=== PATIENT | male | born 1965 | race Caucasian/White ===

== ENCOUNTER 2019-02-07 10:06 | Day surgery (SDC) | payer OTHER ==
[2019-02-07] MEDS ORDERED: Depo-Medrol 40 MG/ML IM ONE (10:07)
[2019-02-07] MEDS ORDERED: Xylocaine 1% Vial 30 ML PF IJ ONE (10:07)
[2019-02-07] MEDS ORDERED: Zofran 4 MG/2 ML VIAL IV ONE (10:07)
[2019-02-07] MEDS ORDERED: Sodium Chloride 0.9(Preservative Free) 10 ML IJ ONE (10:07)
[2019-02-07] MEDS ORDERED: DIPRIVAN 200 MG/20 ML IV ONE (10:07)
--- NOTE | 2019-02-07 13:40 | XRAY ---
18 seconds of fluoroscopy was used in surgery for a L5-S1 AMADOR.
--- NOTE | 2019-02-07 13:40 | XRAY ---
Indication: L5-S1 AMADOR. Intraoperative fluoroscopy was provided for 18 seconds. Single lateral digital spot image submitted for interpretation demonstrates posterior needle tip projecting just posterior to the lumbosacral junction. Correlate with intraoperative findings/report.
[2019-02-07] MEDS ORDERED: Lactated Ringers 1,000 ML IV ONE (14:54)
[2019-02-07] MEDS ORDERED: Ketamine HCl 50 MG/ML IJ ONE (14:57)
== END 2019-02-07 12:12 | disposition home or self-care (01) ==
LOC: SDC-PAIN 10:06
PROVIDERS: ATTEND Psychiatry & Neurology Pain Medicine
DX: M54.16 Radiculopathy, lumbar region (principal); I10 Essential (primary) hypertension; M47.9 Spondylosis, unspecified; Z79.899 Other long term (current) drug therapy
CPT/HCPCS: 62323; 72100; 77003; J1030; J2001; J2405; J2704; Q9966

== ENCOUNTER 2019-02-28 12:43 | Day surgery (SDC) | payer OTHER ==
[2019-02-28] MEDS ORDERED: Depo-Medrol 40 MG/ML IM ONE (12:44)
[2019-02-28] MEDS ORDERED: Xylocaine-Mpf 2% 5 Ml Vial IJ ONE (12:44)
[2019-02-28] MEDS ORDERED: Ketamine HCl 50 MG/ML IV ONE (12:44)
[2019-02-28] MEDS ORDERED: DIPRIVAN 200 MG/20 ML IV ONE (12:44)
[2019-02-28] MEDS ORDERED: Lactated Ringers 1,000 ML IV ONE (14:24)
--- NOTE | 2019-02-28 16:27 | XRAY ---
12 seconds of fluoroscopy was used in surgery for bilateral L4-L5 and L5-S1 MBB.
--- NOTE | 2019-03-01 05:16 | XRAY ---
Indication: Bilateral L4-L5 and L5-S1 MBB. Intraoperative fluoroscopy was provided for 12 seconds. A single digital spot image submitted for interpretation demonstrates posterior spinal needle tips injected over the expected course of the right and left L4, L5, and S1 nerve roots. A small amount of contrast has been injected for needle tip placement. Correlate with intraoperative findings/.
== END 2019-02-28 14:15 | disposition home or self-care (01) ==
LOC: SDC-PAIN 12:43
PROVIDERS: ATTEND Psychiatry & Neurology Pain Medicine
DX: M47.816 Spondylosis without myelopathy or radiculopathy, lumbar region (principal); I10 Essential (primary) hypertension
CPT/HCPCS: 64493; 64494; 72020; 77002; J1030; J2704

== ENCOUNTER 2019-03-28 09:52 | Day surgery (SDC) | payer OTHER ==
[2019-03-28] MEDS ORDERED: Depo-Medrol 40 MG/ML IM ONE (09:53)
[2019-03-28] MEDS ORDERED: Sodium Chloride 0.9(Preservative Free) 10 ML IJ ONE (09:53)
[2019-03-28] MEDS ORDERED: DIPRIVAN 200 MG/20 ML IV ONE (11:19)
[2019-03-28] MEDS ORDERED: Ketamine HCl 50 MG/ML ONE (11:19)
--- NOTE | 2019-03-28 12:10 | XRAY ---
Indication: Left L4-L5 and L5-S1 transforaminal AMADOR. Intraoperative fluoroscopy was provided for 16 seconds. 2 digital spot images submitted for interpretation demonstrates posterior needle tips projecting over the expected course of the left L4 and L5 nerve roots. Small amount of contrast injected for needle tip placement. Correlate with intraoperative findings/report.
--- NOTE | 2019-03-28 12:20 | XRAY ---
16 seconds of fluoroscopy was used in surgery for a left L4-L5 and L5-S1 transforaminal AMADOR.
[2019-03-28] MEDS ORDERED: Lactated Ringers 1,000 ML IV ONE (13:34)
== END 2019-03-28 11:54 | disposition home or self-care (01) ==
LOC: SDC-PAIN 09:52
PROVIDERS: ATTEND Psychiatry & Neurology Pain Medicine
DX: M54.16 Radiculopathy, lumbar region (principal); I10 Essential (primary) hypertension
CPT/HCPCS: 64483; 64484; 72020; 77003; J1030; J2704; Q9966

== ENCOUNTER 2019-05-30 09:33 | Day surgery (SDC) | payer OTHER ==
[2019-05-30] MEDS ORDERED: Depo-Medrol 40 MG/ML IM ONE (09:34)
[2019-05-30] MEDS ORDERED: Sodium Chloride 0.9(Preservative Free) 10 ML IJ ONE (09:34)
[2019-05-30] MEDS ORDERED: DIPRIVAN 200 MG/20 ML IV ONE (10:27)
[2019-05-30] MEDS ORDERED: Ketamine HCl 50 MG/ML ONE (10:27)
[2019-05-30] MEDS ORDERED: BENADRYL 50 MG/ML ONE (10:32)
[2019-05-30] MEDS ORDERED: DILAUDID 2 MG INJECTION ONE (10:55)
--- NOTE | 2019-05-30 11:58 | XRAY ---
Indication: Right L4-S1 AMADOR. Intraoperative fluoroscopy was provided for 30 seconds. 2 digital spot images submitted for interpretation demonstrates posterior needle tips projecting over the expected course of the right L4-L5 nerve roots. Small amount of contrast injected for needle tip placement. Correlate with intraoperative findings/report.
--- NOTE | 2019-05-30 12:08 | XRAY ---
30 seconds fluoroscopy time in surgery for right L4-S1 AMADOR.
[2019-05-30] MEDS ORDERED: Lactated Ringers 1,000 ML IV ONE (14:18)
== END 2019-05-30 11:35 | disposition home or self-care (01) ==
LOC: SDC-PAIN 09:33
PROVIDERS: ATTEND Psychiatry & Neurology Pain Medicine
DX: M54.16 Radiculopathy, lumbar region (principal); I10 Essential (primary) hypertension; Z79.899 Other long term (current) drug therapy
CPT/HCPCS: 64483; 64484; 72100; 77003; J1030; J1170; J1200; J2704; Q9966